=== PATIENT | female | born 1980 | race Caucasian/White ===

== ENCOUNTER 2019-10-12 11:29 | Emergency (ER) | payer OTHER ==
[2019-10-12 11:47] VITALS: BP 154/89
--- NOTE | 2019-10-12 14:04 | XRAY Report ---
PROCEDURE: Elbow 3 View LT INDICATIONS: LEFT elbow pain s/p fall TECHNIQUE: 3 views of the elbow were acquired. COMPARISON: None FINDINGS: Bones: No fractures or dislocations. No suspicious bony lesions. Soft tissues: Trace elbow joint effusion. No suspicious soft tissue calcifications. IMPRESSION: No fracture demonstrated. Trace elbow joint effusion, which can be seen in the setting of occult frac ture as well as soft tissue injury. Reviewed by: Emmett Blackburn MD on 10/12/2019 2:02 PM PDT Approved by: Emmett Blackburn MD on 10/12/2019 2:02 PM PDT Station ID: [id number]
--- NOTE | 2019-10-12 14:32 | ED Physician Documentation ---
PD HPI UPPER EXT INJURY - Stated complaint Stated Complaint: L ELBOW INJ - Chief complaint Chief Complaint: Ext Problem - History obtained from History obtained from: Patient - History of Present Illness Location: Left, Elbow Type of injury: Fall Timing - onset: How many weeks ago (2) Pain level max: 10 Pain level now: 3 Improved by: Nothing Worsened by: Moving - Additonal information Additional information: 38-year-old female comes to the emergency department for follow-up of left elbow pain following a fall on September 30 in [facility]. Patient was initially seen at an outside hospital for left elbow pain and swelling. Initial imaging showed no evidence of fracture. She was advised to wear the sling until symptoms improved. Patient reports that she wore the sling for about 24 hours but pain improved. However since then she is unable to fully extend or flex the elbow. She feels that it locks in place. She has no further swelling. Denies any paresthesias. no hx of previous injury Patient is staying on [facility] for the next 2 to 3 months. Review of Systems Constitutional: denies: Fever, Chills Cardiac: denies: Chest pain / pressure, Palpitations Respiratory: denies: Dyspnea, Cough GI: denies: Abdominal Pain Musculoskeletal: reports: Joint pain PD PAST MEDICAL HISTORY - Past Medical History Past Medical History: No - Past Surgical History Past Surgical History: Yes General: Appendectomy /[employer]: section - Allergies Allergies/Adverse Reactions: Allergies Allergy/AdvReac Type Severity Reaction Status Date / Time ciprofloxacin AdvReac Unknown Verified 10/12/19 11:47 - Social History Does the pt smoke?: No Smoking Status: Never smoker Does the pt drink ETOH?: Yes - Immunizations Immunizations are current?: Yes PD ED PE NORMAL - General General: Alert and oriented X 3, No acute distress - Extremities Extremities: No deformity, No edema (Able to flex elbow to 130 degrees and extend to only about 20 degrees. mild tenderness at proximal ulnar head. ), Other. No: No tenderness to palpate Results - Vitals Vitals: Vital Signs - 24 hr 10/12/19 11:42 Temperature 36.4 C L Heart Rate 52 L Respiratory 16 Rate Blood Pressure 154/89 H O2 Saturation 98 Oxygen O2 Source Room air - Rads (name of study) left elbow Radiology: Final report received (No fracture demonstrated. Trace elbow joint effusion which can be seen in the setting of occult fracture as well as soft tissue injury) PD MEDICAL DECISION MAKING - ED course Complexity details: reviewed results, re-evaluated patient, d/w patient ED course: 38-year-old female presents to the emergency department for follow-up of persistent left elbow pain following a fall on September 30. [facility]. Repeat imaging today again shows no fracture though there is a joint trace effusion. Patient does not have the ability to fully extend or flex the elbow. Will advise patient to continue to wear the sling and make referral to [facility]. Departure - Departure Disposition: Home, Self Care Clinical Impression: Left elbow pain Condition: Stable Instructions: ED Contusion Upper Extr Ch Follow-Up: [facility] [Provider Group] - Within 1 week Comments: The x-ray today again shows no fracture. There is a little bit of fluid around the joint we often see this though after contusions and soft tissue injury. I would like you to wear the sling more often. I have made a referral for you to be seen by orthopedics and I would call today or tomorrow to schedule the follow-up appointment.
== END 2019-10-12 14:57 | disposition home or self-care (01) ==
LOC: ED 11:29
DX: M25.522 Pain in left elbow (principal); W18.30XA Fall on same level, unspecified, initial encounter
CPT/HCPCS: 99283